=== PATIENT | male | born 1970 | race Caucasian/White ===

== ENCOUNTER 2022-11-20 13:51 | Emergency (ER) | payer SELFPAY ==
[2022-11-20 14:02] VITALS: BP 112/72; PULSE 91; RESP 16; TEMP 36.4; O2SAT 98; BMI 20.5
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
[2022-11-20 16:47] VITALS: BP 128/84; PULSE 80; RESP 16; O2SAT 97
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
== END 2022-11-20 16:50 | disposition home or self-care (01) ==
PROVIDERS: Emergency Provider Emergency Medicine
DX: S02.2XXA Fracture of nasal bones, initial encounter for closed fracture (principal); S42.102A Fracture of unspecified part of scapula, left shoulder, initial encounter for closed fracture; Y04.8XXA Assault by other bodily force, initial encounter
CPT/HCPCS: 70450; 70486; 71046; 73030; 99284; 99285

== ENCOUNTER 2023-10-24 09:22 | Emergency (ER) | payer OTHER, SELFPAY ==
[2023-10-24 09:31] VITALS: BP 106/69; PULSE 79; RESP 16; TEMP 36.6; BMI 21.1
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
== END 2023-10-24 10:09 | disposition home or self-care (01) ==
LOC: ED 10:04
PROVIDERS: Emergency Provider Internal Medicine
DX: R44.0 Auditory hallucinations (principal)
CPT/HCPCS: 99283

== ENCOUNTER 2024-08-05 18:41 | Emergency (ER) | payer OTHER, SELFPAY ==
[2024-08-05 18:51] VITALS: BP 110/75; PULSE 92; RESP 16; TEMP 37.2; O2SAT 97; BMI 19.1
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
--- NOTE | 2024-08-05 19:22 | CRLHL7_ITS ---
For Patients: As a result of the Century Cures Act, medical imaging exams and procedure reports are released immediately into your electronic medical record. You may view this report before your referring provider. If you have questions, please contact your health care provider. INDICATION: AMS TECHNIQUE: Non-contrast CT of the head is submitted. COMPARISON: CT brain dated 11/20/2022 FINDINGS: The ventricles, sulci and gyri are of normal size, shape and contour. Midline structures are centrally located. No convincing evidence of intra- or extra-axial fluid collections. IMPRESSION: No radiographic evidence of acute intracranial abnormalities. Please note that all CT scans at this facility use dose modulation, iterative reconstruction, and/or weight-based dosing when appropriate to reduce radiation dose to as low as reasonably achievable. Dictated by Steven Mckeon MD @ 08/05/2024 7:43:29 PM (Electronically Signed)
[2024-08-05 19:42] LABS: Basophils Absolute Auto 0.05 K/uL (0.00-0.30); Basophils Percent Auto 0.6 % (0.0-3.0); Eosinophils Absolute Auto 0.23 K/uL (0.00-0.50); Eosinophils Percent Auto 2.5 % (0.0-7.0); Hematocrit 42.1 % (37.0-53.0); Hemoglobin* 13.6 gm/dL (13.5-17.5); Immature Granulocytes Abs Auto 0.01 K/uL (0.00-0.30); Immature Granulocytes Pct Auto 0.1 %; Lymphocytes Absolute Auto 2.16 K/uL (0.90-2.90); Lymphocytes Percent Auto 23.8 % (20-44); Mean Corpuscular HGB Conc 32 gm/dL (32-36); Mean Corpuscular Hemoglobin 29 pg (26-34); Mean Corpuscular Volume 91 fL (80-100); Monocytes Percent Auto 7.3 % (0.0-11.0); Neutrophils Absolute Auto 5.98 K/uL (1.7-7.0); Neutrophils Percent Auto 65.7 % (42.0-72.0); Platelet Count* 261 K/uL (140-440); RDW Coefficient of Variation % 13.1 % (11.5-15.5); Red Blood Count 4.62 m/uL (4.30-5.90); White Blood Count* 9.09 K/uL (4.50-11.00)
--- NOTE | 2024-08-05 19:43 | CRLHL7_ITS ---
For Patients: As a result of the Century Cures Act, medical imaging exams and procedure reports are released immediately into your electronic medical record. You may view this report before your referring provider. If you have questions, please contact your health care provider. INDICATION: Weight loss. TECHNIQUE: Chest 1 view. COMPARISON: Chest radiograph 11/20/2022. FINDINGS: Cardiovascular: Heart size and pulmonary vasculature are within normal limits. Lungs and pleural spaces: The lungs are clear. No focal consolidation. No sign of pleural effusion. No pneumothorax identified. Bones and soft tissues: No significant findings. IMPRESSION: No acute cardiopulmonary findings. Dictated by Maggie Calvin MD @ 08/05/2024 8:25:10 PM (Electronically Signed)
[2024-08-05 19:44] LABS: Slide Review Reflex No
[2024-08-05 19:51] LABS: Appearance Urine Clear (Clear); Bilirubin Urine Negative (Negative); Blood Urine Negative (Negative); Color Urine Yellow (Yellow); Glucose Urine Negative (Negative); Ketones Urine Trace (Negative); Leukocyte Esterase Urine Negative (Negative); Nitrite Urine Negative (Negative); Protein Urine Negative (Negative); Specific Gravity Urine >= 1.030 (1.000-1.030); Urobilinogen Urine 0.2 (0.2-1.0); pH Urine 5.5 (5.0-8.5)
--- OUTSIDE RECORDS SUMMARY | 2024-08-05 19:54 | XMS_ITS | Clinical Summary ---
Author Organization [facility] Address [address] [place] [id number] Care Team Providers Care Installation Tech Name Role Phone Stewart Garner MD Primary Care Provider [phone] Nicole Fatima NP Unavailable Allergies No known active allergies Medications loratadine (CLARITIN) 10 MG tabletIndication s:Itching Take 1 tablet (10 mg) by mouth daily 90 tablet 3 4 Active albuterol (ALBUTEROL) 108 (90 BASE) MCG/ACT inhalerIndicatio ns:Wheezing Inhale 2 puffs into the lungs 4 times daily as needed for shortness of breath / dyspnea 1 Inhaler 2 5 Active propranolol (INDERAL) 40 MG tabletIndication s:Benign essential hypertension Take 1 tablet (40 mg) by mouth 2 times daily 60 tablet 1 9 Active Additional Information Patient not taking.Reported on 04/16/2022 lisinopril (PRINIVIL/ZESTRI L) 40 MG tabletIndication s:Benign essential hypertension Take 1 tablet (40 mg) by mouth daily #Pt needs appointment for refill# 30 tablet 9 Active Additional Information Patient not taking.Reported on 04/16/2022 lisinopril (ZESTRIL) 10 MG tabletIndication s:Benign essential hypertension Take 1 tablet (10 mg) by mouth daily 90 tablet 3 Active propranolol (INDERAL) 20 MG tabletIndication s:Tremor Take 1 tablet (20 mg) by mouth 3 times daily 60 tablet 3 Active Active Problems Problem Noted Date Diagnosed Date Epididymal cyst 05/11/2016 Benign essential hypertension 09/06/2015 Essential and other specified forms of tremor Smoker 05/29/2013 Alcohol abuse 05/29/2013 Hyperlipidemia LDL goal <130 11/21/2012 GERD (gastroesophageal reflux disease) 3 Tobacco use disorder 06/06/2012 Resolved Problems Problem Noted Date Diagnosed Date Resolved Date HTN, goal below 140/90 11/21/201209/05 Immunizations Immunization Administration Dates Next Due TD,PF 7+ (Tenivac) 06/30/2013 TDAP (Adacel,Boostrix) 06/30/2013 Family History Medical History Relation Comments Heart Disease Father dx heart failure , 60- from cardiac arrest Cancer Mother lung cancer-smok er Cancer - colorectal No family hx of Diabetes No family hx of Prostate Cancer No family hx of Relation Status Comments Father Mother Alive Social History Tobacco Use Types Packs/Day Years Used Date Smoking Tobacco: Every Day Cigarettes Smokeless Tobacco: Never Tobacco Cessation:Ready to Q uit: No; Counseling Given: No Alcohol Use Standard Drinks/Week Comments No 0 (1 standard drink = 0.6 oz pur e alcohol) PHQ-2 Answer Date Recorded PHQ-2 Score 0 04/16/2022 Adolescent Education Answer Date Record ed Getting School Help Needed Not on file 12/21 Sex and Gender Information Value Date Recorded Sex Assigned at Not on file Legal Sex Male 5:19 AM [employer] Gender Identity Not on file Sexual Orientation Not on file Last Filed Vital Signs Vital Sign Reading Time Taken Comments Blood Pressure 135/92 04/16/2022 11:47 AM [employer] Pulse 88 04/16/2022 11:47 AM [employer] Temperature 36.6 C (97.9 F) 04/16/2022 11:47 AM [employer] Respiratory Rate 14 09/19/2017 2:38 PM CDT Oxygen Saturation 99% 04/16/2022 11:47 AM [employer] Inhaled Oxygen Concentration - - Weight 60.9 kg (134 lb 4.8 oz) 04/16/2022 11:47 AM [employer] Height 174 cm (5' 8.5) 04/16/2022 11:47 AM [employer] Body Mass Index 20.12 04/16/2022 11:47 AM [employer] Plan of Treatment Health Maintenance Due Date Last Done Comments CT COLONOGRAPHY 1969 FIT 1969 FLEX SIG 1969 sDNA (Cologuard) 1969 COLONOSCOPY 12/12/1979 COLORECTAL CANCER SCREENING 12/12/1979 HIV SCREENING 1984 HEPATITIS B IMMUNIZATION (1 of 3 - 19+ 3-dose series) 1988 Pneumococcal Vaccine: 50+ Years (1 of 2 - PCV) 1988 LIPID 07/24/2015 07/23/2014, 11/17/2012 BMP 02/06/2018 02/06/2017, 04/2 06/2014, 07/02/2013, Additional history exists LUNG CANCER SCREENING 12/12/2019 ZOSTER IMMUNIZATION (1 of 2) 12/12/2019 DIABETES SCREENING 02/07/2020 02/06/2017, 0 07/23/2014, 07/02/2013, Additional history exists ANNUAL REVIEW OF HM ORDERS 04/16/2023 04/16/2022 DTAP/TDAP/TD IMMUNIZATION (2 - Td or Tdap) 07/01/2023 06/30/2013, 06/30/2013 COVID-19 Vaccine ( season) 2023 PHQ-2 (once per calendar year) 2024 04/16/2022, 05/15/2017, 03/21/2016 YEARLY PREVENTIVE VISIT 09/04/2024 09/05/19 24, 04/16/2022, 03/21/2013 INFLUENZA VACCINE (Season Ended) 2024 ADVANCE CARE PLANNING 04/16/2027 04/16/2022 HEPATITIS C SCREENING Completed 07/02/2013 HPV IMMUNIZATION Aged Out No longer e ligible based on patient's age to complete this topic MENINGITIS IMMUNIZATION Aged Out No l onger eligible based on patient's age to complete this topic Procedures Procedure Name Priority Date/Time Associated Diagnosis Comments BASIC METABOLIC PANEL Routine 02/06/2017 4:27 PM [employer] Benign essential hypertension LIPID REFLEX TO DIRECT LDL PANEL Routine 07/23/2014 7:56 AM CDT Hyperlipidemia LDL goal <130 HEPATITIS C ANTIBODY Routine 07/02/2013 3:50 PM CDT Elevated LFTs from Last 3 Months or Most Recently Relevant to Health Maintenance Results * (ABNORMAL) Basic metabolic panel (02/06/2017 4:27 PM [employer]) Sodium 144 133 - 144 mmol/L 02/08/2017 9:53 AM [facility] Potassium 3.7 3.4 - 5.3 mmol/L 02/08/2017 9:53 AM [facility] Chloride 109 94 - 109 mmol/L 02/08/2017 9:53 AM [facility] Carbon Dioxide 29 20 - 32 mmol/L 02/08/2017 9:53 AM [facility] Anion Gap 6 3 - 14 mmol/L 02/08/2017 9:53 AM [facility] Glucose 103(H) 70 - 99 mg/dL 02/08/2017 9:53 AM [facility] Urea Nitrogen 12 7 - 30 mg/dL 02/08/2017 9:53 AM [facility] Creatinine 1.10 0.66 - 1.25 mg/dL 02/08/2017 9:53 AM [facility] GFR Estimate 72 >60 mL/min/1.7 m2 02/08/2017 9:53 AM [facility] Comment:Non GFR Calc GFR Estimate If Black 87 >60 mL/min/1.7 m2 02/08/2017 9:53 AM [facility] Comment: GFR Calc Calcium 8.7 8.5 - 10.1 mg/dL 02/08/2017 9:53 AM [facility] Blood specimen (specimen) 02/06/2017 4:27 PM [employer] 02/06/2017 4:32 PM [employer] us Stewart Garner MD LAB - BLOOD ORDERABLES Final Res ult [facility] [address] [place] [address] * Lipid panel reflex to direct LDL (07/23/2014 7:56 AM CDT) Cholesterol 181 <200 mg/dL [facility] Comment: LDL Cholesterol is the primary guide to therapy. The NCEP recommends further evaluation of: patients with cholesterol greater than 200 mg/dL if additional risk factors are present, cholesterol greater than 240 mg/dL, triglycerides greater than 150 mg/dL, or HDL less than 40 mg/dL. Triglycerides 123 0 - 150 mg/dL [facility] HDL Cholesterol 54 >40 mg/dL [facility] LDL Cholesterol Calculated 102 0 - 129 mg/dL [facility] Comment: LDL Cholesterol is the primary guide to therapy: LDL-cholesterol goal in high risk patients is <100 mg/dL and in very high risk patients is <70 mg/dL. VLDL-Cholesterol 25 0 - 30 mg/dL [facility] Cholesterol/HDL Ratio 3.4 0.0 - 5.0 [facility] Blood specimen (specimen) 07/23/2014 7:56 AM CDT 07/23/2014 8:01 AM CDT Stewart Garner MD LAB - BLOOD ORDERABLES Final Res ult Performing Organization Address City/[facility]/ZIP Co de Phone Number [facility] [address] [place] [address] * Hepatitis C antibody (07/02/2013 3:50 PM CDT) Hepatitis C Antibody Negative [facility]G [facility] Blood specimen (specimen) 07/02/2013 3:50 PM CDT 07/02/2013 3:51 PM CDT us Greta Rosales MD LAB - BLOOD ORDERABLES Final Res ult Performing Organization Address City/[facility]/ZIP Co de Phone Number [facility] [address] [place], [place] [address] from Last 3 Months or Most Recently Relevant to Health Maintenance Insurance BCBS OUT OF STATE Care Teams Installation Tech Relationship Specialty Start Date End Date Stewart Garner MD PCP - General Family Practice 10/26/15 Nicole Fatima NP [address] [place] [id number] Assigned PCP 04/21/22
--- OUTSIDE RECORDS SUMMARY | 2024-08-05 19:54 | XMS_ITS | Encounter Summary ---
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 would like to see specialist for tremor. brother has tremor, he is older brother. balance is ok. alcohol- does drink, tremor befrore alcohol. usually mixed drinks. rum and coke. less than 20 drinks a week end. mother has a little tremor. He presented with rash. It is located on the legs. The symptom is described as acute, intermittent and dry itchy. The symptom is ongoing. The symptom started 1 year ago. The complaint is moderate. Patient denies dizziness, eye irritation and fatigue. Current Medication: Omeprazole 20 mg Tab, Delayed Release, 1 Tablet(s), PO and BID. ROS: lumps on scrotum Constitutional: The patient denied chills, diaphoresis and fatigue. Ears/Nose/Throat/Neck: The patient denied cerumen, nosebleed and cosmetic deformity. Cardiovascular: The patient denied arrhythmia, chest pain/pressure and claudication. Respiratory: The patient complained of cigarette smoking but denied apneic events, asthma and chest congestion. Gastrointestinal: The patient denied abdominal pain, anorexia and constipation. Genitourinary/Nephrology: The patient denied anuria/oliguria, breast complaint and dysuria. Neurologic: The patient complained of tremor but denied dizziness, gait abnormality and headache. Vital Signs: data collected on 06/06/2011 04:35:46 PM by Lashon Antonio blood pressure (manual) at Right Arm while Sitting is 130/86 mmHg data collected on 06/06/2011 04:32:25 PM by Lashon Antonio weight is 174 pounds 4.00 ounces clothed w/ shoes sitting heart rate is 80 bpm radial regular blood pressure (manual) at Right Arm while Sitting is 136/90 mmHg PE: lumps on scrotum small sebaceous cysts. Constitutional: GENERAL APPEARANCE: Overall: well nourished and well developed; Nourishment: thin. Ears/Nose/Throat: EXTERNAL EAR: Overall: normal appearance; EXTERNAL NOSE: Overall: benign appearance, no masses and non-tender; OTOSCOPIC EXAM: Overall: external auditory canals clear and tympanic membranes clear. Neck: INSPECTION OF NECK: Overall: normal appearance and no carotid bruits. Respiratory: AUSCULTATION: Overall: breath sounds clear bilaterally; RESPIRATORY EFFORT/RHYTHM: Overall: no retractions and normal rate. Cardiovascular: AUSCULTATION OF HEART: Overall: regular rate, regular rhythm, normal heart sounds and no murmurs. Abdomen: ABDOMINAL EXAM: Overall: no tenderness and normal bowel sounds; LIVER AND SPLEEN EXAM: Overall: no hepatosplenomegaly. Genitourinary: PENIS: Overall: no lesions, no discharge and appropriate Espinoza stage of penis; SCROTUM/TESTES: Left scrotum: non-tender; Right scrotum: non-tender. Neurologic: DEEP TENDON REFLEXES: Overall: deep tendon reflexes intact; COORDINATION: Tremors: resting; CRANIAL NERVES: Overall: cranial nerves 2-12 intact. Psychiatric: BEHAVIOR/PSYCHOMOTOR ACTIVITY: Overall: no tics, normal psychomotor activity; MOOD AND AFFECT: Overall: normal mood and affect; APPEARANCE: Grooming: disheveled; SPEECH: Overall: normal quality, no aphasia and normal quality, quantity, rate. Dx: (305.1) - C - Tobacco dependence (781.0) - C - Tremors of nervous system Rx: Lotrisone 1 %-0.05 % Lotion, TOP, BID PRN, 30 days, 1 refills, for a total of 1 botlte, start on June 06, 2011, end on August 04, 2011. 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 reduse use of alcohol. recommend stop smoking, not interested in nicotine replacement at this time. He was given this form: 'Patient Medication Summary'. Patient Instructions: None documented in this encounter Plan of Treatment Not on file documented as of this encounter Visit Diagnoses Not on filedocumented in this encounter Care Teams Certified Ski Patroller Relationship Specialty Start Date End Date Khoa Dave MD PCP - General Family Practice 06/04/12 10/25/15 Stewart Garner MD PCP - General Family Practice 10/26/15 [place] [address] [place] [address] PCP - Assigned PCP 03/28/14 05/17/18 [place] [address] [place] [address] PCP - Assigned PCP 05/18/18 06/03/18 [place] [address] [place] [address] Assigned PCP 05/18/18 09/20/18 [place] [address] [place] [address] Assigned PCP 03/28/14 05/17/18 [place] [address] [place] [address] Assigned PCP 09/21/18 05/21/20 [place] [address] [place] [address] Assigned PCP 05/22/20 09/24/20 Nicole Fatima NP [address] [place] [address] Assigned PCP 04/21/22 documented as of this encounter
--- OUTSIDE RECORDS SUMMARY | 2024-08-05 19:54 | XMS_ITS | Encounter Summary ---
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) [address] [address] Donovan Bernal MD [place] [address] [address] Social History Tobacco Use Types Packs/Day Years Used Date Smoking Tobacco: Never Assessed Sex and Gender Information Value Date Recorded Sex Assigned at Not on file 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 came on late Saturday, came on at work in epigastric area, bloating, twinges, wakes him up at night. It is located in the epigastric area and in the LUQ. The symptom is described as aching, burning and squeezing. The symptom started 4-5 days ago. The complaint does not limit activities. Patient denies biliary colic and diarrhea. Associated signs and symptoms include bloating. In addition, he presented with gastroesophageal reflux. trying to eat better but still bothers him---bloating more but hurts when breathes in. The symptom is described as acute, acute and intermittent. The symptom is gradual in onset. The symptom started 3-4 days ago. The patient also presented with fatigue. tired all the time. The symptom is described as acute and acute. The symptom is gradual in onset and ongoing. The symptom started 4-5 days ago. ROS: Constitutional: The patient denied fever and recent illness. Gastrointestinal: The patient complained of abdominal pain, gas and bloating and gastroesophageal reflux but denied constipation, diarrhea, nausea and vomiting. Vital Signs: data collected on 09/25/2008 10:08:34 AM by Tony Patino weight is 168 pounds 4.00 ounces clothed sitting heart rate is 68 bpm regular blood pressure at Left Arm while Sitting is 110/80 mmHg PE: Constitutional: GENERAL APPEARANCE: Overall: well nourished, well developed and in no acute distress. Respiratory: AUSCULTATION: Overall: breath sounds clear bilaterally; RESPIRATORY EFFORT/RHYTHM: Overall: no retractions and normal rate. Cardiovascular: AUSCULTATION OF HEART: Overall: regular rate, regular rhythm, normal heart sounds and no murmurs. Abdomen: ABDOMINAL EXAM: Left upper quadrant: tender to palpation, dull pain, no guarding, no rebound tenderness and no mass lesions; Epigastric: tender to palpation, dull pain, no guarding, no rebound tenderness and no mass lesions; LIVER AND SPLEEN EXAM: Overall: no hepatosplenomegaly. Dx: 789.04 Abdominal pain, LLQ (530.81) - C - GERD Rx: Protonix 40 mg Tab, 1 Tablet(s), PO, daily, 20 days, for a total of 20, start on September 25, 2008, end on October 14, 2008. Plan: A return visit is indicated in 2weeks. Patient Instructions: None documented in this encounter Plan of Treatment Not on file documented as of this encounter Visit Diagnoses Not on filedocumented in this encounter Care Teams Research Assoc Relationship Specialty Start Date End Date Khoa Dave MD PCP - General Family Practice 06/04/12 10/25/15 Stewart Garner MD PCP - [facility] Family Practice 10/26/15 [place] [address] [address] [address] PCP - Assigned PCP 03/28/14 05/17/18 [place] [address] [address] [address] PCP - Assigned PCP 05/18/18 06/03/18 [place] [address] [address] [address] Assigned PCP 05/18/18 09/20/18 [place] [address] [address] [address] Assigned PCP 03/28/14 05/17/18 [place] [address] [address] [address] Assigned PCP 09/21/18 05/21/20 [place] [address] [place] [address] Assigned PCP 05/22/20 09/24/20 Nicole Fatima NP [address] [place] [address] Assigned PCP 04/21/22 documented as of this encounter
--- OUTSIDE RECORDS SUMMARY | 2024-08-05 19:54 | XMS_ITS | Encounter Summary ---
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 Plan: None Patient Instructions: None COUNSELOR documented in this encounter Plan of Treatment Not on file documented as of this encounter Visit Diagnoses Not on filedocumented in this encounter Care Teams Lump Room Supervisor Relationship Specialty Start Date End Date Khoa Dave MD PCP - [facility] Family Practice 06/04/12 10/25/15 Stewart Garner MD PCP - [facility] Practice 10/26/15 [place] [address] [address] [address] PCP - Assigned PCP 03/28/14 05/17/18 [place] [address] [address] [address] PCP - Assigned PCP 05/18/18 06/03/18 [place] [address] [address] [address] Assigned PCP 05/18/18 09/20/18 [place] [address] [address] [address] Assigned PCP 03/28/14 05/17/18 [place] [address] [place] [address] Assigned PCP 09/21/18 05/21/20 [place] [address] [place] [address] Assigned PCP 05/22/20 09/24/20 Nicole Fatima NP [address] [place] [address] Assigned PCP 04/21/22 documented as of this encounter
--- OUTSIDE RECORDS SUMMARY | 2024-08-05 19:54 | XMS_ITS | Clinical Summary ---
Author Organization [email or web address] Address [address] [place] [address] Care Team Providers Care Coconut Jelly Roller Name Role Phone Pcp, No Primary Care Provider Unavailabl e Allergies No known active allergies Medications lisinopriL (PRINIVIL; ZESTRIL) 10 mg tabletIndication s:HTN (hypertension) Take 1 Tablet (10 mg) by mouth once daily. 90 Tablet 3 09/05/2023 Active Active Problems No known active problems Immunizations Immunization Administration Dates Next Due Td, Preservative Free (age >= 7 Years) 4 Tdap, Unspecified 06/30/2013 Social History Tobacco Use Types Packs/Day Years Used Date Smoking Tobacco: Every Day Cigarettes Passive Smoke Exposure: Past Smokeless Tobacco: Never Alcohol Use Standard Drinks/Week Comments Not Currently 0 (1 standard drink = 0.6 oz pur e alcohol) quit 2014 PHQ-2 Answer Date Recorded PHQ-2 TOTAL SCORE 0 09/05/2023 Social Connections Answer Date Recorded Frequency of Communication with Friends and Fami ly Not on file 09/05/2023 Sex and Gender Information Value Date Recorded Sex Assigned at Not on file 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 Gender Identity Not on file Sexual Orientation Not on file Obstetrics History Last Filed Vital Signs Vital Sign Reading Time Taken Comments Blood Pressure 128/84 09/05/2023 8:21 AM CDT Pulse 98 09/05/2023 8:21 AM CDT Temperature - - Respiratory Rate - - Oxygen Saturation 98% 09/05/2023 8:21 AM CDT Inhaled Oxygen Concentration - - Weight 59.7 kg (131 lb 11.2 oz) 09/05/2023 8:21 AM CDT Height 174.3 cm (5' 8.62) 09/05/2023 8:21 AM CD T Body Mass Index 19.66 09/05/2023 8:21 AM CDT Plan of Treatment Health Maintenance Due Date Last Done Comments Pneumococcal series for age 50+ (1 of 2 - PCV) 1988 Colonoscopy through age 75 2014 Zoster (shingles) series for age 50+ (1 of 2) 12/12/2019 Tetanus booster 07/01/2023 06/30/2013, 06/30/2013 COVID-19 vaccine series ( season) 2023 BMI (ht and wt on same day) for age 18+ 09/04/2024 09/05/2023 Depression screening for age 12+ 09/05/2024 09/06/2023, 09/05/2023, 09/05/2023 Influenza Vaccine (Season Ended) 2024 Lipids for age 45-75 09/04/2028 09/05/2023 Tdap Completed 06/30/2013 HIV for age 15-65 Completed 09/05/2023 Hepatitis C screening for age 18-79 Completed 09/04 Procedures Procedure Name Priority Date/Time Associated Diagnosis Comments ANTI HIV 1/2 Routine 09/05/2023 8:57 AM CDT Screening for HIV (human immunodeficiency virus) ANTI HCV Routine 09/05/2023 8:57 AM CDT Need for hepatitis C screening test LIPID PANEL W REFLEX MEASURED LDL Routine 09/05/2023 8:57 AM CDT Screening for hyperlipidemia from Last 3 Months or Most Recently Relevant to Health Maintenance Results * LIPID PANEL W REFLEX MEASURED LDL (09/05/2023 8:57 AM CDT) CHOLESTEROL,TOTAL 170 100 - 199 mg/dL 09/05/2023 4:18 PM CDT [facility] [employer] Comment: Cholesterol, Total Reference Ranges Desirable <200 mg/dL Borderline 200-239 mg/dL High >=240 mg/dL TRIGLYCERIDES 80 <150 mg/dL 09/05/2023 4:18 PM CDT [facility] [employer] HDL CHOLESTEROL 66 >40 mg/dL 4:18 PM CDT [facility] NON-HDL CHOLESTEROL 104 <145 mg/dl 09/05/2023 4:18 PM CDT [facility] CHOL/HDL RATIO 2.58 <4.50 09/05/2023 4:18 PM CDT [facility] LDL CHOLESTEROL 88 <=130 mg/dL 09/05/2023 4:18 PM CDT [facility] VLDL CHOLESTEROL 16 <=30 mg/dL 09/05/2023 4:18 PM CDT [facility] PROVIDER ORDERED STATUS RANDOM 09/05/2023 4:18 PM CDT [facility] Blood BLOOD SPECIMEN / Unknown Venipuncture / Unknown 09/05/2023 8:57 AM CDT 09/05/2023 8:57 AM CDT us Danielle REAVES CHEMISTRY Final Result Performing Organization Address City/[facility] Co de Phone Number [facility] [address] [place] [address], [place] * ANTI HCV (09/05/2023 8:57 AM CDT) Pathologist [facility] HEPATITIS C ANTIBODY Non-Reacti ve Non-React juanita 09/05/2023 4:04 PM CDT [facility] Comment:Please note, per www .CDC.gov: If a patient is known to be at high risk of HCV infection, or is symptomatic, and the physician's suspicion of HCV infection is high, HCV RNA testing is often employed and is of diagnostic value, even after an initial negative anti-HCV test result. Blood BLOOD SPECIMEN / Unknown Venipuncture / Unknown 09/05/2023 8:57 AM CDT 09/05/2023 8:57 AM CDT us Danielle REAVES SEND OUTS Final Result Performing Organization Address City/[facility]/ZIP Co de Phone Number [facility] [address] [place] [address], [place] * ANTI HIV 1/2 [94771.0] (09/05/2023 8:57 AM CDT) HIV-1/HIV-2 SCREEN Non-Reacti ve Non-Reacti ve 09/05/2023 4:05 PM CDT [facility] Comment:HIV-1 p24 and HIV-1/ HIV-2 Ab Not Detected. Blood BLOOD SPECIMEN / Unknown Venipuncture / Unknown 09/05/2023 8:57 AM CDT 09/05/2023 8:57 AM CDT us Danielle REAVES SEND OUTS Final Result [facility] [address] [place] [address], [place] from Last 3 Months or Most Recently Relevant to Health Maintenance Care Teams Coconut Jelly Roller Relationship Specialty Start Date End Date Pcp, No . PCP - General 06/27/23
--- OUTSIDE RECORDS SUMMARY | 2024-08-05 19:54 | XMS_ITS | Encounter Summary ---
Author Organization [facility] Address [address] [place] [address] Care Team Providers Care Park Landscape Architect Name Role Phone Khoa Dave MD Primary Care Provider U Stewart Brewer MD Primary Care Provider + Stewart Garner MD Unavailable + Sherly Carter MD Unavailable + Sherly Carter MD Unavailable + Stewart Garner MD Unavailable + Stewart Garner MD Unavailable + Sherly Carter MD Unavailable + Nicole Fatima NP Unavailable Encounter Details Date Type Department Care Team (Late st Contact Info) Description 07/07/2008 Clinic Report (Bowling Pin Refinisher) [address] [address] Donovan Bernal MD [place] [address] [address] Social History Tobacco Use Types Packs/Day Years Used Date Smoking Tobacco: Never Assessed Sex and Gender Information Value Date Recorded Sex Assigned at Not on file 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 ROS: None PE: None Dx: (v70.0) - C - Well adult exam V74.5 Screening, STD Rx: None Plan: None Patient Instructions: None documented in this encounter Plan of Treatment Not on file documented as of this encounter Visit Diagnoses Not on filedocumented in this encounter Care Teams Park Landscape Architect Relationship Specialty Start Date End Date Khoa Dave MD PCP - General Family Practice 06/04/12 10/25/15 Stewart Garner MD PCP - General Family Practice 10/26/15 [place] [address] [address] [address] PCP - Assigned PCP 03/28/14 05/17/18 [place] [address] [address] [address] PCP - Assigned PCP 05/18/18 06/03/18 [place] [address] [address] [address] Assigned PCP 05/18/18 09/20/18 [place] [address] [address] [address] Assigned PCP 03/28/14 05/17/18 [place] [address] [address] [address] Assigned PCP 09/21/18 05/21/20 [place] [address] [place] [address] Assigned PCP 05/22/20 09/24/20 Nicole Fatima NP [address] [place] [address] Assigned PCP 04/21/22 documented as of this encounter
--- OUTSIDE RECORDS SUMMARY | 2024-08-05 19:54 | XMS_ITS | Encounter Summary ---
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 The patient is sexually active. Urinary complaints include none. Lifestyle is remarkable for no history of physical abuse, no history of sexual abuse, no history of verbal abuse, regular seatbelt use, family supportive of relationship, satisfactory work experience and normal sleep patterns. Health maintenance issues include normal weight, balanced nutrition, regular diet and moderate exercise. Cardiovascular risk factors include lifestyle. Reproductive development history shows normal development. Patient received health guidance in tobacco, drugs and alcohol avoidance. ROS: Constitutional: The patient denied chills and fever. Eyes: The patient denied eye pain and vision change. Ears/Nose/Throat/Neck: The patient denied nasal discharge and otalgia. Cardiovascular: The patient denied chest pain/pressure and palpitations. Respiratory: The patient complained of cigarette smoking but denied cough and wheezing. Gastrointestinal: The patient denied constipation and diarrhea. Genitourinary/Nephrology: The patient denied dysuria and urinary frequency. Musculoskeletal: The patient denied arthralgia(s) and myalgias. Dermatologic: The patient denied itching and rash. Neurologic: The patient complained of headache (frequent, bilat) but denied dizziness. Psychiatric: The patient denied insomnia and mood swings. Vital Signs: data collected on 07/05/2008 02:06:44 PM by Lala Wylie weight is 165 pounds clothed height is 6 feet body mass index is 24.19 Kg/m2 sitting heart rate is 80 bpm radial regular blood pressure at Left Arm while Sitting is 110/78 mmHg PE: Constitutional: GENERAL APPEARANCE: Overall: well nourished, well developed and in no acute distress. Eyes: OPHTHALMOSCOPIC EXAM: Overall: benign arterioles, benign arterial-venous crossing, benign fundi and sharp optic disc; CONJUNCTIVA/EYELIDS: Overall: conjunctiva clear, cornea clear and eyelids normal; PUPILS AND IRISES: Overall: pupils equal, round, reactive to light and accomodation. Ears/Nose/Throat: EXTERNAL EAR: Overall: normal appearance; EXTERNAL NOSE: Overall: benign appearance, no masses and non-tender; OTOSCOPIC EXAM: Overall: external auditory canals clear and tympanic membranes clear; HEARING ASSESSMENT: Overall: hearing intact bilaterally; LIPS/TEETH/GINGIVA: Overall: benign lips, normal dentition, benign gingiva and no masses; ORAL CAVITY/PHARYNX/LARYNX: Overall: tonsils benign, oropharyngeal mucosa clear and no masses. Neck: THYROID: Overall: normal size, normal consistency, nontender and no mass lesions; INSPECTION OF NECK: Overall: normal appearance and no carotid bruits. Respiratory: AUSCULTATION: Overall: breath sounds clear bilaterally; RESPIRATORY EFFORT/RHYTHM: Overall: no retractions and normal rate. Cardiovascular: AUSCULTATION OF HEART: Overall: regular rate, regular rhythm, normal heart sounds and no murmurs; INSPECTION OF CAROTID PULSES: Overall: strong, bilaterally equal, no bruits; INSPECTION OF ABDOMINAL AORTA: Overall: normal diameter; INSPECTION OF PEDAL PULSES: Overall: strong, equal bilaterally; EXTREMITIES: Overall: no clubbing and no edema. Chest/Breast: BREAST AND AXILLAE PALPATION: Overall: breasts non-tender and no nipple discharge; BREAST/CHEST INSPECTION: Overall: breasts to symmetric and without lesions and normal chest shape. Abdomen: ABDOMINAL EXAM: Overall: no tenderness and normal bowel sounds; LIVER AND SPLEEN EXAM: Overall: no hepatosplenomegaly; HERNIA EXAM: Overall: no hernias present. Genitourinary: PENIS: Overall: no lesions, no discharge and appropriate Espinoza stage of penis; RENAL: flank No CVA tenderness; SCROTUM/TESTES: Overall: no masses, non-tender and appropriate Espinoza stage of testicles; URETHRA: Overall: no masses; BLADDER: Overall: no tenderness. Lymphatic: NECK NODES: Overall: anterior cervical chain benign and posterior cervical chain benign; OTHER NODES: Overall: occipital chain benign, auricular chain benign and supraclavicular chain benign. Musculoskeletal: HEAD AND NECK: Overall: head atraumatic and cervical spine benign; DIGITS AND NAILS: Overall: no clubbing and digits benign; SPINE, RIBS AND PELVIS: Overall: good posture, ribs benign and spine benign; GAIT AND STATION: Overall: normal gait and normal station. Integument: INSPECTION OF SKIN: Overall: no rash, lesions; PALPATION: Overall: no induration, no tenderness. Neurologic: DEEP TENDON REFLEXES: Overall: deep tendon reflexes intact; SENSATION: Overall: intact to touch; MENTAL STATUS: Overall: alert and oriented; GAIT: Overall: no ataxia, no unsteadiness; COORDINATION: Overall: no tremors; Tremors: resting; CRANIAL NERVES: Overall: cranial nerves 2-12 intact; MOTOR: Overall: normal bulk, tone. Psychiatric: ORIENTATION/CONSCIOUSNESS: Overall: oriented to person, place and time; BEHAVIOR/PSYCHOMOTOR ACTIVITY: Overall: no tics, normal psychomotor activity; MOOD AND AFFECT: Overall: normal mood and affect; APPEARANCE: Overall: well-groomed, good eye contact; SPEECH: Overall: normal quality, no aphasia and normal quality, quantity, rate; ATTENTION: Overall: normal digit recall and number repeating; THOUGHT: Overall: normal form and content; COGNITION/MEMORY: Overall: immediate, recent, remote memory intact and normal concentration, intelligence; JUDGMENT/INSIGHT: Overall: judgment and insight intact. Dx: (v70.0) - C - Well adult exam (530.81) - C - GERD 305.1 Tobacco dependence Rx: None Plan: Recommend smoking cessation, but Pt is not ready to work for that A return visit is indicated in 2years. Patient Instructions: None documented in this encounter Plan of Treatment Not on file documented as of this encounter Visit Diagnoses Not on filedocumented in this encounter Care Teams Hazardous Waste Remover Relationship Specialty Start Date End Date Khoa Dave MD PCP - [facility] 06/04/12 10/25/15 Stewart Garner MD PCP - General Family Practice 10/26/15 [place] [address] [place] [address] PCP - Assigned PCP 03/28/14 05/17/18 [place] [address] [address] [place] [address] PCP - Assigned PCP 05/18/18 06/03/18 [place] [address] [place] [address] Assigned PCP 05/18/18 09/20/18 [place] [address] [place] [address] Assigned PCP 03/28/14 05/17/18 [place] [address] [place] [address] Assigned PCP 09/21/18 05/21/20 [place] [address] [place] [address] Assigned PCP 05/22/20 09/24/20 Nicole Fatima NP [address] [place] [address] Assigned PCP 04/21/22 documented as of this encounter
--- OUTSIDE RECORDS SUMMARY | 2024-08-05 19:54 | XMS_ITS | Encounter Summary ---
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 The symptom is described as chronic. The symptom is gradual in onset. The symptom started about 2 years ago. The complaint is severe pt. would like to talk re: poss? referral to GI Spec. . The frequency of episodes is every meal and increasing. Episodes occur in the morning, in the afternoon and in the evening. Diet includes spicy foods, includes caffeine, includes mint and includes chocolate. Important triggers include smoking, exposure to second-hand smoke and meals. ROS: Constitutional: The patient denied recent illness. Gastrointestinal: The patient denied constipation, diarrhea, hematochezia and melena. Vital Signs: data collected on 01/16/2010 04:30:38 PM by Vanessa Esparza weight is 167 pounds clothed sitting heart rate is 72 bpm radial regular blood pressure at Left Arm while Sitting is 118/68 mmHg PE: Constitutional: GENERAL APPEARANCE: Overall: well nourished, well developed and in no acute distress. Abdomen: ABDOMINAL EXAM: Epigastric: tender to palpation, no guarding, no rebound tenderness, no mass lesions and soft; LIVER AND SPLEEN EXAM: Overall: no hepatosplenomegaly. Dx: (530.81) - C - GERD (789.06) - C - Epigastric abdominal pain (305.1) - C - Tobacco dependence Rx: None Plan: Referred to [facility] for upper endoscopy. Discussed quitting smoking, PPI's, H2 blockers and antacids. Discussed not using alkaseltzer. Length of visit was 40 minutes. Patient Instructions: None documented in this encounter Plan of Treatment Not on file documented as of this encounter Visit Diagnoses Not on filedocumented in this encounter Care Teams Sales Representative Public Utilities Relationship Specialty Start Date End Date Khoa Dave MD PCP - General Family Practice 06/04/12 10/25/15 Stewart Garner MD PCP - General Family Practice 10/26/15 [place] [address] [place] [address] PCP - Assigned PCP 03/28/14 05/17/18 [place] [address] [place] [address] PCP - Assigned PCP 05/18/18 06/03/18 [place] [address] [place] [address] Assigned PCP 05/18/18 09/20/18 [place] [address] [place] [address] Assigned PCP 03/28/14 05/17/18 [place] [address] [place] [address] Assigned PCP 09/21/18 05/21/20 [place] [address] [place] [address] Assigned PCP 05/22/20 09/24/20 Nicole Fatima NP [address] [place] [address] Assigned PCP 04/21/22 documented as of this encounter
--- OUTSIDE RECORDS SUMMARY | 2024-08-05 19:54 | XMS_ITS | Encounter Summary ---
Author Organization [place] Address [address] [place] [address]. [place] [address] Care Team Providers Care Used Car Sales Manager Name Role Phone Stewart Garner MD Primary Care Provider [phone] Sherly Carter MD Unavailable [phone] Stewart Garner MD Unavailable Sherly Carter MD Unavailable [phone] Nicole Fatima NP Unavailable Reason for Visit * Reason Onset Date Comments Medication Refill 09/15/2018 lisinopril ([place] INIVIL/ZESTRIL) 40 MG tablet Refill Request 09/18/2018 Encounter Details Date Type Department Care Team (Late st Contact Info) Description 09/14/2018 Refill [facility] [address] [facility], [address] [place] [address] [place] [address] [place] [address] Medication Refill (lisinopril (PRINIVIL/ZESTRIL) 40 MG tablet); Refill Request Social History Tobacco Use Types Packs/Day Years Used Date Smoking Tobacco: Every Day Cigarettes Smokeless Tobacco: Never Alcohol Use Standard Drinks/Week Comments No 0 (1 standard drink = 0.6 oz pur e alcohol) PHQ-2 Answer Date Recorded PHQ-2 Score 0 04/09/2018 Sex and Gender Information Value Date Recorded Sex Assigned at Not on file 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 He stated he can not make a lab or office visit appointment at this time because he is going through a financial hardship at this time. May 29, 2018 - patient was given a 30 day supply Note Lisinopril. Medication is being filled for 1 time refill only due to: Patient needs labs yearly BP lab work. Future labs ordered Basic Metabolic Panel. Letter sent to patient. Andria Parker RN Break in medication. I asked patient if he was taking daily and he stated he has not been taking Lisinopril or the propranolol for some time because he is unable to afford them at this time. Please review and advise on refill. Jess Lowe RN Flex Requested Prescriptions Pending Prescriptions Disp Refills ??? lisinopril (PRINIVIL/ZESTRIL) 40 MG tablet [Pharmacy Med Name: LISINOPRIL 40MG TABS] 30 tablet 0 Sig: TAKE ONE TABLET BY MOUTH EVERY DAY SHELDON Inhibitors (Including Combos) Protocol Failed - 09/15/2018 9:18 AM Failed - Normal serum creatinine on file in past 12 months Recent Labs Lab Test 02/06/17 1627 CR 1.10 Failed - Normal serum potassium on file in past 12 months Recent Labs Lab Test 02/06/17 1627 POTASSIUM 3.7 Passed - Blood pressure under 140/90 in past 12 months BP Readings from Last 3 Encounters: 09/19/17 120/84 08/06/17 136/84 05/15/17 (!) 144/106 Passed - Recent (12 mo) or future (30 days) visit within the authorizing provider's specialty Patient had office visit in the last 12 months or has a visit in the next 30 days with authorizing provider or within the authorizing provider's specialty. See Patient Info tab in inbasket, or Choose Columns in Meds & Orders section of the refill encounter. Passed - Medication is active on med list Passed - Patient is age 18 or older ??? propranolol (INDERAL) 40 MG tablet 60 tablet 0 Sig: Take 1 tablet (40 mg) by mouth 2 times daily There is no refill protocol information for this order * Telephone Encounter - Aliyah Us - 09/15/2018 9:17 AM CDT Images from the original note were not included. Requested Prescriptions Pending Prescriptions Disp Refills ??? lisinopril (PRINIVIL/ZESTRIL) 40 MG tablet [Pharmacy Med Name: LISINOPRIL 40MG TABS] 30 tablet 0 Sig: TAKE ONE TABLET BY MOUTH EVERY DAY Last Written Prescription Date: 05/29/18 Last Fill Quantity: 30, # refills: 0 Last Office Visit: 09/19/2017 Emma Return in about 1 month (around 10/19/2017) for wellness exam. Future Office Visit: SHELDON Inhibitors (Including Combos) Protocol Failed - 09/14/2018 1:53 PM Failed - Normal serum creatinine on file in past 12 months Recent Labs Lab Test 02/06/17 1627 CR 1.10 Failed - Normal serum potassium on file in past 12 months Recent Labs Lab Test 02/06/17 1627 POTASSIUM 3.7 Passed - Blood pressure under 140/90 in past 12 months BP Readings from Last 3 Encounters: 09/19/17 120/84 08/06/17 136/84 05/15/17 (!) 144/106 Passed - Recent (12 mo) or future (30 days) visit within the authorizing provider's specialty Patient had office visit in the last 12 months or has a visit in the next 30 days with authorizing provider or within the authorizing provider's specialty. See Patient Info tab in inbasket, or Choose Columns in Meds & Orders section of the refill encounter. Passed - Medication is active on med list Passed - Patient is age 18 or older documented in this encounter Plan of Treatment Not on file documented as of this encounter Visit Diagnoses Diagnosis Benign essential hypertension Essential hypertension, benign documented in this encounter Care Teams Used Car Sales Manager Relationship Specialty Start Date End Date Stewart Garner MD PCP - General Family Practice 10/26/15 [place] [address] [place] [address] Assigned PCP 05/18/18 09/20/18 [place] [address] [place] [address] Assigned PCP 09/21/18 05/21/20 [place] [address] [place] [address] Assigned PCP 05/22/20 09/24/20 Nicole Fatima NP [address] [place] [address] Assigned PCP 04/21/22 documented as of this encounter
--- OUTSIDE RECORDS SUMMARY | 2024-08-05 19:54 | XMS_ITS | Encounter Summary ---
Author Organization [place] Address [address] [place] [address]. [place] [address] Care Team Providers Care Joiners Supervisor Name Role Phone Stewart Garner MD Primary Care Provider [phone] Stewart Garner MD Unavailable Sherly Carter MD Unavailable [phone] Nicole Fatima NP Unavailable Reason for Visit * Reason Comments Medication Refill Encounter Details Date Type Department Care Team (Late st Contact Info) Description 01/01/[address], [address] [place] [address] [place] [address] [place] [address] Medication Refill Social History Tobacco Use Types Packs/Day Years Used Date Smoking Tobacco: Every Day Cigarettes Smokeless Tobacco: Never Alcohol Use Standard Drinks/Week Comments No 0 (1 standard drink = 0.6 oz pur e alcohol) PHQ-2 Answer Date Recorded PHQ-2 Score 0 04/09/2018 Sex and Gender Information Value Date Recorded Sex Assigned at Not on file 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 Last OV 2.14.19 Emma ankle swelling OV 6.21.18 [place] * Telephone Encounter - Radha Choi - 01/01/2019 12:54 PM CDT Last Written Prescription Date: 09/17/18 Last Fill Quantity: 30, # refills: 1 Last office visit: 09/19/2017 with prescribing provider: Dr Garner Future Office Visit: Requested Prescriptions Pending Prescriptions Disp Refills ??? lisinopril (PRINIVIL/ZESTRIL) 40 MG tablet [Pharmacy Med Name: LISINOPRIL 40MG TABS] 30 tablet 1 Sig: TAKE ONE TABLET BY MOUTH EVERY DAY SHELDON Inhibitors (Including Combos) Protocol Failed - 01/01/2019 11:57 AM Failed - Blood pressure under 140/90 in past 12 months BP Readings from Last 3 Encounters: 09/19/17 120/84 08/06/17 136/84 05/15/17 (!) 144/106 Failed - Recent (12 mo) or future (30 days) visit within the authorizing provider's specialty Patient has had an office visit with the authorizing provider or a provider within the authorizing providers department within the previous 12 mos or has a future within next 30 days. See Patient Info tab in inbasket, or Choose Columns in Meds & Orders section of the refill encounter. Failed - Normal serum creatinine on file in past 12 months Recent Labs Lab Test 02/06/17 1627 CR 1.10 Failed - Normal serum potassium on file in past 12 months Recent Labs Lab Test 02/06/17 1627 POTASSIUM 3.7 Passed - Medication is active on med list Passed - Patient is age 18 or older documented in this encounter Plan of Treatment Not on file documented as of this encounter Visit Diagnoses Diagnosis Benign essential hypertension Essential hypertension, benign documented in this encounter Care Teams Joiners Supervisor Relationship Specialty Start Date End Date Stewart Garner MD PCP - General Family Practice 10/26/15 [place] [address] [address] [address] Assigned PCP 09/21/18 05/21/20 [place] [address] [place] [address] Assigned PCP 05/22/20 09/24/20 Nicole Fatima NP [address] [place] [address] Assigned PCP 04/21/22 documented as of this encounter
--- OUTSIDE RECORDS SUMMARY | 2024-08-05 19:54 | XMS_ITS | Encounter Summary ---
Author Organization [place] Address [address] [place] [address] Care Team Providers Care Shaper And Presser Name Role Phone Khoa Dave MD Primary Care Provider U Stewart Brewer MD Primary Care Provider + Stewart Garner MD Unavailable + Sherly Carter MD Unavailable + Sherly Carter MD Unavailable + Stewart Garner MD Unavailable + Stewart Garner MD Unavailable + Sherly Carter MD Unavailable + Nicole Fatima NP Unavailable Reason for Visit * Reason Onset Date Comments Refill Request 02/26/2012 han Encounter Details Date Type Department Care Team (Late st Contact Info) Description 02/26/[address] [place] [address] Khoa Dave MD NO INFO AVAILABLE 02/02/2022 Refill Request (han) Social History Tobacco Use Types Packs/Day Years Used Date Smoking Tobacco: Never Assessed Sex and Gender Information Value Date Recorded Sex Assigned at Not on file 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 Gender Identity Not on file Sexual Orientation Not on file documented as of this encounter Miscellaneous Notes * Telephone Encounter - Ivonne Mary - 02/28/2012 3:29 PM CST Last office visit: 06/06/2011 Last refill date: Special instructions from pharmacy: no BP Readings from Last 1 Encounters: No data found for BP No results found for this basename: Cr No results found for this basename: BUN No results found for this basename: potassium No results found for this basename: microalbumin No results found for this basename: gfrestimated No results found for this basename: chol No results found for this basename: hdl No results found for this basename: ldl No results found for this basename: trig No results found for this basename: ast No results found for this basename: alt No results found for this basename: a1c No results found for this basename: tsh Ivonne Mary RN RN GREEK STUDIES PROFESSOR documented in this encounter Plan of Treatment Not on file documented as of this encounter Visit Diagnoses Diagnosis Dermatitis- Primary Contact dermatitis and other eczema, due to unspecified cause documented in this encounter Care Teams Shaper And Presser Relationship Specialty Start Date End Date Khoa Dave MD PCP - General Family Practice 06/04/12 10/25/15 Stewart Garner MD PCP - General Family Practice 10/26/15 [place] [address] [address] [address] PCP - Assigned PCP 03/28/14 05/17/18 [place] [address] [place] [address] PCP - Assigned PCP 05/18/18 06/03/18 [place] [address] [place] [address] Assigned PCP 05/18/18 09/20/18 [place] [address] [place] [address] Assigned PCP 03/28/14 05/17/18 [place] [address] [place] [address] Assigned PCP 09/21/18 05/21/20 [place] [address] [place] [address] Assigned PCP 05/22/20 09/24/20 Nicole Fatima NP [address] [place] [address] Assigned PCP 04/21/22 documented as of this encounter
--- OUTSIDE RECORDS SUMMARY | 2024-08-05 19:54 | XMS_ITS | Encounter Summary ---
Author Organization [facility] Address [address] [place] [address]. [place] [address] Care Team Providers Care [employer] Helper Name Role Phone Khoa Dave MD Primary Care Provider U Stewart Brewer MD Primary Care Provider + Stewart Garner MD Unavailable + Sherly Carter MD Unavailable + Sherly Carter MD Unavailable + Stewart Garner MD Unavailable + Stewart Garner MD Unavailable + Sherly Carter MD Unavailable + Nicole Fatima NP Unavailable Encounter Details Date Type Department Care Team (Late st Contact Info) Description 12/03/2012 Telephone [facility] [address] [place] [address] Shahida Kirk PA-C [id number] [place] [address] Social History Tobacco Use Types Packs/Day Years Used Date Smoking Tobacco: Every Day Cigarettes Smokeless Tobacco: Never Alcohol Use Standard Drinks/Week Comments Yes 0 (1 standard drink = 0.6 oz pur e alcohol) PHQ-2 Answer Date Recorded PHQ-2 Score 0 04/16/2022 Adolescent Education Answer Date Record ed Getting School Help Needed Not on file 12/21 Sex and Gender Information Value Date Recorded Sex Assigned at Not on file 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 Pt feels fine and he will schedule physical with Dr. Shahida Khan in the nearest two Weeks. Will route to for future plan. Danica Berry MA documented in this encounter Plan of Treatment Not on file documented as of this encounter Visit Diagnoses Not on filedocumented in this encounter Care Teams [employer] Helper Relationship Specialty Start Date End Date Khoa Dave MD PCP - General Family Practice 06/04/12 10/25/15 Stewart Garner MD PCP - General Family Practice 10/26/15 [place] [address] [place] [id number] PCP - Assigned PCP 03/28/14 05/17/18 [place] [address] [place] [id number] PCP - Assigned PCP 05/18/18 06/03/18 [place] [address] [place] [address] Assigned PCP 05/18/18 09/20/18 [place] [address] [place] [address] Assigned PCP 03/28/14 05/17/18 [place] [address] [place] [address] Assigned PCP 09/21/18 05/21/20 [place] [address] [place] [address] Assigned PCP 05/22/20 09/24/20 Nicole Fatima NP [address] [place] [id number] Assigned PCP 04/21/22 documented as of this encounter
[2024-08-05 19:57] LABS: RBC Urine 0-2 (0-2); WBC Urine 0-2 (0-5)
[2024-08-05 19:59] LABS: Albumin* 4.5 g/dL (3.3-5.0); Chloride* 105 mmol/L (96-114); Potassium* 4.1 mmol/L (3.6-5.1); Sodium* 142 mmol/L (135-149)
[2024-08-05 20:01] LABS: Amphetamine Screen Urine POSITIVE (Negative); Barbiturate Screen Urine Negative (Negative); Benzodiazepines Screen Urine Negative (Negative); Cannabinoid Screen Urine Negative (Negative); Cocaine Screen Urine Negative (Negative); Methadone Screen Urine Negative (Negative); Methamphetamines Screen Urine POSITIVE (Negative); Opiate Screen Urine Negative (Negative); Oxycodone Screen Urine Negative (Negative); Phencyclidine Screen Urine Negative (Negative); Tricyclic Antidepressant Urine Negative (Negative)
[2024-08-05 20:02] LABS: Alanine Aminotransferase* 21 U/L (4-50); Alkaline Phosphatase* 78 U/L (40-150); Anion Gap 9 mEq/L (7-15); Aspartate Amino Transferase* 37 U/L (12-35); Bilirubin Total* 0.7 mg/dL (0.1-1.5); Blood Urea Nitrogen* 24 mg/dL (7-30); Calcium* 9.2 mg/dL (8.4-10.6); Carbon Dioxide* 28 mmol/L (20-32); Estimated Glomerular Filt Rate 89 ml/min; Glucose* 105 mg/dL (60-115); Magnesium* 2.1 mg/dL (1.5-2.6); Total Protein* 7.4 g/dL (6.0-8.3)
[2024-08-05 20:03] LABS: Acetaminophen* < 10.0 ug/mL (10.0-30.0); Ethanol* < 0.01 % (0.01-0.03); Salicylate* < 1.0 mg/dL (1.0-10)
== END 2024-08-05 20:38 | disposition home or self-care (01) ==
PROVIDERS: Emergency Provider Family Medicine
DX: F15.10 Other stimulant abuse, uncomplicated (principal); K12.0 Recurrent oral aphthae; F20.9 Schizophrenia, unspecified
CPT/HCPCS: 36415; 70450; 71045; 80053; 80143; 80179; 80306; 81001; 82077; 83735; 85025; 99284; 99285; Q3014